=== PATIENT | female | born 1995 | race Caucasian/White ===

== ENCOUNTER 2022-03-05 14:25 | Observation (INO) ==
[2022-03-05] MEDS ORDERED: Ringers Solution, Lactated 1,000 ML IVC SCH (15:00)
[2022-03-05 15:01] LABS: Bacteria,Urine Few per hpf (None-Few); Bilirubin,Urine Negative (Negative); Blood,Urine Negative (Negative); Clarity,Urine Clear (Clear); Color,Urine Light-Yellow (Yellow); Glucose,Urine (UA) Normal (Normal); Ketones,Urine 40 mg/dL (Negative); Leukocyte Esterase,Urine Trace (Negative); Mucus,Urine Few per lpf (None-Few); Nitrite,Urine Negative (Negative); PH,Urine 6.5 pH Units (5.0-8.0); Protein,Urine Negative (Neg-Trace); RBC,Urine 0-3 per hpf (0-3); Specific Gravity,Urine 1.009 (1.010-1.025); Squamous Epithelial Cell,Urine Few per hpf (None-Few); Urobilinogen,Urine Normal (Normal); WBC,Urine 0-3 per hpf (0-3)
[2022-03-05] MEDS ORDERED: Ringers Solution, Lactated 1,000 ML ONE (15:04)
[2022-03-05 16:04] LABS: Basophils % 0.3 %; Eosinophils % 0.4 %; Hematocrit 38.1 % (35.3-44.9); Hemoglobin 12.7 g/dL (11.5-15.4); Immature Granulocytes % 0.3 % (0-4); Lymphocytes # 1.8 K/mcL (0.6-4.6); Lymphocytes % 15.8 %; Mean Corpuscular HGB Conc 33.3 g/dL (31.6-35.5); Mean Corpuscular Hemoglobin 30.7 pg (28.0-33.3); Mean Platelet Volume 9.9 fL (9.4-12.4); Monocytes # 0.7 K/mcL (0.0-1.3); Monocytes % 6.1 %; Neutrophils # 8.8 K/mcL (1.6-8.9); Platelet Count 237 K/mcL (140-400); Red Blood Count 4.14 M/mcL (3.82-4.97); Red Cell Distribution Width 13.3 % (11.5-14.5); Segmented Neutrophils % 77.1 %; White Blood Count 11.4 K/mcL (4.3-11.1)
[2022-03-05] MEDS ORDERED: EPHEDrine 50 MG/ML VIAL IVP PRN (16:17)
[2022-03-05] MEDS ORDERED: Epidural Premix (fent/bupiv) 110 ML EP SCH (16:30)
[2022-03-05] MEDS ORDERED: *HR* Metformin 500 MG TABLET PO SCH (20:00)
== END 2022-03-05 20:15 | disposition home or self-care (01) ==
LOC: 1NENULAB
PROVIDERS: ADMIT Advanced Practice Midwife; ATTEND Advanced Practice Midwife

== ENCOUNTER 2022-03-09 12:51 | Inpatient (IN) ==
[~2022-03-09 12:51] MED LIST: *HR* Nalbuphine 10 MG/ML AMPUL IV PRN; Famotidine 20 MG/2 ML VIAL IVP PRN; Metoclopramide 10 MG/2 ML VIAL IVP PRN; Naloxone 0.4 MG/ML INJ IVP PRN
[2022-03-09] MEDS ORDERED: Ringers Solution, Lactated 1,000 ML IVC SCH (13:00)
[2022-03-09 13:23] LABS: Basophils % 0.2 %; Eosinophils % 0.3 %; Hematocrit 39.3 % (35.3-44.9); Hemoglobin 12.8 g/dL (11.5-15.4); Immature Granulocytes % 0.7 % (0-4); Lymphocytes # 1.6 K/mcL (0.6-4.6); Lymphocytes % 15.2 %; Mean Corpuscular HGB Conc 32.6 g/dL (31.6-35.5); Mean Corpuscular Hemoglobin 30.4 pg (28.0-33.3); Mean Corpuscular Volume 93.3 fL (83.0-100.0); Mean Platelet Volume 9.8 fL (9.4-12.4); Monocytes # 0.7 K/mcL (0.0-1.3); Monocytes % 6.9 %; Neutrophils # 8.1 K/mcL (1.6-8.9); Platelet Count 205 K/mcL (140-400); Red Blood Count 4.21 M/mcL (3.82-4.97); Red Cell Distribution Width 13.8 % (11.5-14.5); Segmented Neutrophils % 76.7 %; White Blood Count 10.5 K/mcL (4.3-11.1)
[2022-03-09] MEDS ORDERED: EPHEDrine 50 MG/ML VIAL IVP PRN (13:23)
[2022-03-09 13:30] LABS: Amphetamine Screen,Urine Negative ng/mL (Cutoff=1000); Barbiturate Screen,Urine Negative ng/mL (Cutoff=200); Benzodiazepines Screen,Urine Negative ng/mL (Cutoff=200); Cannabinoid Screen,Urine Negative ng/mL (Cutoff = 50); Cocaine Screen,Urine Negative ng/mL (Cutoff= 300); Opiate Screen,Urine Negative ng/mL (Cutoff=300); Phencyclidine Screen,Urine Negative ng/mL (Cutoff=25)
[2022-03-09] MEDS ORDERED: Epidural Premix (fent/bupiv) 110 ML EP SCH (13:30)
== END 2022-03-09 19:20 | disposition home or self-care (01) | DRG 833 ==
LOC: 1NENULAB
PROVIDERS: ADMIT Advanced Practice Midwife; ATTEND Advanced Practice Midwife

== ENCOUNTER → 2022-03-15 12:37 | Observation (INO) ==
[2022-03-15 06:06] LABS: Bacteria,Urine Few per hpf (None-Few); Bilirubin,Urine Negative (Negative); Blood,Urine Negative (Negative); Clarity,Urine Clear (Clear); Color,Urine Light-Yellow (Yellow); Glucose,Urine (UA) Normal (Normal); Ketones,Urine Negative (Negative); Leukocyte Esterase,Urine Small (Negative); Mucus,Urine Few per lpf (None-Few); Nitrite,Urine Negative (Negative); Protein,Urine Negative (Neg-Trace); RBC,Urine 0-3 per hpf (0-3); Specific Gravity,Urine 1.007 (1.010-1.025); Squamous Epithelial Cell,Urine Few per hpf (None-Few); Urobilinogen,Urine Normal (Normal)
[~2022-03-15 12:37] MED LIST changes: -*HR* Nalbuphine 10 MG/ML AMPUL IV PRN; +EPHEDrine sulfate 50 MG/10 ML VIAL IVP PRN; +Epidural Premix (fent/bupiv) 110 ML EP SCH; -Famotidine 20 MG/2 ML VIAL IVP PRN; -Metoclopramide 10 MG/2 ML VIAL IVP PRN; -Naloxone 0.4 MG/ML INJ IVP PRN
== END | disposition home or self-care (01) ==
LOC: 1NENULAB
PROVIDERS: ADMIT Registered Nurse; ATTEND Registered Nurse

== ENCOUNTER 2022-03-19 08:52 | Inpatient (IN) ==
[~2022-03-19 08:52] MED LIST changes: +Azithromycin 500 MG in 0.9 % Sodium Chloride 250 ML IVPB PRN; -EPHEDrine sulfate 50 MG/10 ML VIAL IVP PRN; -Epidural Premix (fent/bupiv) 110 ML EP SCH; +Famotidine 20 MG/2 ML VIAL IVP PRN; +Metoclopramide 10 MG/2 ML VIAL IVP PRN; +Naloxone 0.4 MG/ML INJ IVP PRN; +Ondansetron 4 MG/2 ML VIAL IVP PRN
[2022-03-19] MEDS ORDERED: Oxytocin 30 UNIT/503 ML BAG IVC SCH ×2 (09:00→17:37)
[2022-03-19] MEDS ORDERED: Ringers Solution, Lactated 1,000 ML IVC SCH (09:00)
[2022-03-19 09:06] LABS: Basophils % 0.2 %; Eosinophils # 0.1 K/mcL (0.0-0.6); Eosinophils % 0.9 %; Hematocrit 38.3 % (35.3-44.9); Hemoglobin 12.5 g/dL (11.5-15.4); Immature Granulocytes % 0.5 % (0-4); Lymphocytes # 1.8 K/mcL (0.6-4.6); Lymphocytes % 18.7 %; Mean Corpuscular HGB Conc 32.6 g/dL (31.6-35.5); Mean Corpuscular Volume 91.8 fL (83.0-100.0); Mean Platelet Volume 9.7 fL (9.4-12.4); Monocytes # 0.4 K/mcL (0.0-1.3); Monocytes % 3.8 %; Neutrophils # 7.3 K/mcL (1.6-8.9); Platelet Count 243 K/mcL (140-400); Red Blood Count 4.17 M/mcL (3.82-4.97); Red Cell Distribution Width 13.6 % (11.5-14.5); Segmented Neutrophils % 75.9 %; White Blood Count 9.6 K/mcL (4.3-11.1)
[2022-03-19] MEDS ORDERED: *HR* FentaNYL (PF) 100 MCG/2 ML VIAL EP ONE (09:19)
[2022-03-19] MEDS ORDERED: Ropivacaine/PF 0.2% 20 ML VIAL EP ONE (09:19)
[2022-03-19] MEDS ORDERED: EPHEDrine sulfate 50 MG/10 ML VIAL IVP PRN (09:19)
[2022-03-19] MEDS ORDERED: *HR* FentaNYL (PF) 100 MCG/2 ML VIAL ONE (09:25)
[2022-03-19] MEDS ORDERED: Ropivacaine/PF 0.2% 20 ML VIAL ONE (09:25)
[2022-03-19] MEDS ORDERED: Epidural Premix (fent/bupiv) 110 ML EP SCH (09:30)
[2022-03-19 11:56] LABS: Amphetamine Screen,Urine Negative ng/mL (Cutoff=1000); Barbiturate Screen,Urine Negative ng/mL (Cutoff=200); Benzodiazepines Screen,Urine Negative ng/mL (Cutoff=200); Cannabinoid Screen,Urine Negative ng/mL (Cutoff = 50); Cocaine Screen,Urine Negative ng/mL (Cutoff= 300); Opiate Screen,Urine Negative ng/mL (Cutoff=300); Phencyclidine Screen,Urine Negative ng/mL (Cutoff=25)
[2022-03-19] MEDS ORDERED: Rho Immune Globulin 1,500 UNIT SYRINGE IM PRN (17:37)
[2022-03-19] MEDS ORDERED: Lanolin 7 G OINT...G. TP PRN (17:37)
[2022-03-19] MEDS ORDERED: Benzocaine/Menthol 56 GM AEROSOL SPRAY TP PRN (17:37)
[2022-03-19] MEDS ORDERED: Ondansetron ODT 4 MG TAB.RAPDIS SL PRN (17:37)
[2022-03-19] MEDS ORDERED: OXYTOCIN/RINGERS LACTATE 10 UNIT/166.6 ML BAG IVC ONE (17:37)
[2022-03-19] MEDS: Ibuprofen 600 MG TABLET PO SCH (19:41)
[2022-03-20 00:47] VITALS: O2SAT 97
[2022-03-20] MEDS: Acetaminophen 325 MG TABLET PO SCH ×4 (01:04→16:04)
[2022-03-20] MEDS: Ibuprofen 600 MG TABLET PO SCH ×4 (01:48→15:57)
[2022-03-20 08:19] VITALS: BP 106/62; PULSE 72; TEMP 97.9
[2022-03-20] MEDS ORDERED: Prenatal Vit/FA 1 EACH TABLET PO SCH (09:00)
== END 2022-03-20 17:55 | disposition home or self-care (01) | DRG 806 ==
LOC: 1NENULAB → 1NENUOBS 20:13
PROVIDERS: ADMIT Advanced Practice Midwife; ATTEND Advanced Practice Midwife